=== PATIENT | female | born 1975 | race Caucasian/White ===

== ENCOUNTER 2020-11-11 22:00 | Emergency (ER) | payer MEDICAID, OTHER ==
[~2020-11-11] VITALS: Ht 157.5 cm; Wt 49.0 kg
[2020-11-11 22:36] VITALS: BP 128/74
[2020-11-11] MEDS ORDERED: KETO10TA2 PO (23:01)
--- NOTE | 2020-11-11 23:21 | NUR ---
Patient discharged to home in stable condition. Written and verbal after care instructions given. Patient verbalizes understanding of instruction. Pt ambulatory with a steady gait
== END 2020-11-11 23:22 | disposition home or self-care (01) ==
LOC: ER 22:01
DX: S00.81XA Abrasion of other part of head, initial encounter (principal); F07.81 Postconcussional syndrome; Z60.2 Problems related to living alone; W22.8XXA Striking against or struck by other objects, initial encounter; Y93.89 Activity, other specified; Y92.89 Other specified places as the place of occurrence of the external cause; Y99.8 Other external cause status

== ENCOUNTER 2021-02-03 10:28 | Emergency (ER) | payer OTHER ==
[~2021-02-03] VITALS: Ht 157.5 cm; Wt 49.0 kg
[~2021-02-03 10:28] MED LIST: KETO10TA2 PO
[2021-02-03 10:36] VITALS: BP 117/54
--- NOTE | 2021-02-03 10:40 | NUR ---
PT CAME TO ER C/O RADIATING L UPPER ARM BURNING/PAIN X 3 DAYS. PAIN RADIATES FROM ELBOW TO UNDERARM. ADMITS INCREASING SWEAT IN L ARM. ADMITS NAUSEA WITHOUT VOMITING. HX OF ANXIETY. PT TAKES GABAPENTIN, HAS NOT TAKEN FOR 3 DAYS. A&OX4, AMBULATORY, SKIN IS WARM AND DRY, PULSES 2+ BILATERALLY, LUNGS CLEAR TO AUSCULATION.
--- NOTE | 2021-02-03 11:08 | NUR ---
Patient discharged to home in stable condition. Written and verbal after care instructions given. Patient verbalizes understanding of instruction.
== END 2021-02-03 11:08 | disposition home or self-care (01) ==
LOC: ER 10:32
DX: G62.9 Polyneuropathy, unspecified (principal); Z60.2 Problems related to living alone; Z79.899 Other long term (current) drug therapy

== ENCOUNTER 2021-09-13 13:24 | Emergency (ER) | payer OTHER ==
[~2021-09-13] VITALS: Ht 157.5 cm; Wt 49.0 kg
[2021-09-13 14:14] VITALS: BP 120/98
--- NOTE | 2021-09-13 14:35 | NUR ---
Patient discharged to home in stable condition. Written and verbal after care instructions given. Patient verbalizes understanding of instruction.
== END 2021-09-13 14:37 | disposition home or self-care (01) ==
LOC: ER 13:29
DX: S70.361A Insect bite (nonvenomous), right thigh, initial encounter (principal); F41.9 Anxiety disorder, unspecified; F32.A Depression, unspecified; Z60.2 Problems related to living alone; Z79.899 Other long term (current) drug therapy; W57.XXXA Bitten or stung by nonvenomous insect and other nonvenomous arthropods, initial encounter; Y93.89 Activity, other specified; Y92.89 Other specified places as the place of occurrence of the external cause; Y99.8 Other external cause status

== ENCOUNTER 2022-03-31 20:15 | Emergency (ER) | payer OTHER ==
[~2022-03-31] VITALS: Ht 157.5 cm; Wt 49.9 kg
[2022-03-31 23:15] VITALS: BP 108/52
--- NOTE | 2022-03-31 23:28 | NUR ---
Patient discharged to home in stable condition. Written and verbal after care instructions given. Patient verbalizes understanding of instruction.
== END 2022-03-31 23:28 | disposition home or self-care (01) ==
LOC: ER 20:17
DX: R23.8 Other skin changes (principal); F32.A Depression, unspecified; M54.9 Dorsalgia, unspecified; F41.9 Anxiety disorder, unspecified; Z60.2 Problems related to living alone; Z79.899 Other long term (current) drug therapy

== ENCOUNTER 2022-11-29 16:22 | Emergency (ER) | payer OTHER ==
[~2022-11-29] VITALS: Ht 157.5 cm; Wt 46.7 kg
[2022-11-29] MEDS ORDERED: GABAPENTIN 100 MG CAPSULE ONE (16:57)
[2022-11-29] MEDS ORDERED: GABAPENTIN 100 MG CAPSULE PO ONE ×2 (17:00→18:00)
[2022-11-29] MEDS ORDERED: ONDANSETRON 4 MG TAB.RAPDIS ONE (17:06)
[2022-11-29] MEDS ORDERED: ONDANSETRON 4 MG TAB.RAPDIS SL ONE (17:30)
[2022-11-29 17:39] VITALS: BP 113/70; TEMP 98.8; O2SAT 97
== END 2022-11-29 17:39 | disposition left against medical advice (07) ==
LOC: ER 16:35
DX: F45.8 Other somatoform disorders (principal); F41.0 Panic disorder [episodic paroxysmal anxiety]; F41.9 Anxiety disorder, unspecified; F32.A Depression, unspecified; Z60.2 Problems related to living alone
CPT/HCPCS: 99283; Q0162